=== PATIENT | female | born 1975 | race African-American/Black ===

== ENCOUNTER 2017-12-17 16:30 | Emergency (ER) | payer OTHER ==
[~2017-12-17] VITALS: Ht 162.6 cm; Wt 66.8 kg
[2017-12-17 16:57] LABS: ALBUMIN 4.2 g/dL (3.2-4.8); CHLORIDE 103 mEq/L (99-109); HEMATOCRIT 31.4 % (36.0-46.0); HEMOGLOBIN 9.8 G/DL (11.9-15.5); MCH 23.2 PG (29.0-34.0); MCHC 31.2 G/DL (30.0-36.0); MCV 74.4 FL (83-99); PLATELET COUNT 216 K/uL (156-360); POTASSIUM 3.7 mEq/L (3.7-5.4); RBC DIS.WIDTH-CV 15.5 % (11.8-14.6); RBC DIS.WIDTH-SD 41.8 % (39-53); RED BLOOD COUNT 4.22 M/uL (3.80-5.20); SODIUM 137 mEq/L (136-147); WHITE BLOOD COUNT 6.9 K/uL (4.1-10.2)
[2017-12-17 16:59] LABS: GLUCOSE 87 mg/dL (70-99); TOTAL PROTEIN 7.5 g/dL (6.4-8.3)
[2017-12-17 17:01] LABS: TOTAL BILIRUBIN 0.2 mg/dL (0.0-1.0)
[2017-12-17 17:03] LABS: ALKALINE PHOSPHATASE 98 IU/L (3-129); CREATININE 0.9 mg/dL (0.6-1.3); GFR ESTIMATE (CALCULATED) > 59 mL/min/
[2017-12-17 17:04] LABS: UREA NITROGEN (BUN) 5 mg/dL (9-23)
[2017-12-17 17:05] LABS: AST (GOT) 20 IU/L (2-34)
[2017-12-17 17:06] LABS: ALT (GPT) 19 IU/L (3-49)
[2017-12-17 17:11] LABS: QUANTITATIVE HCG < 4.0 MIU/ML
[2017-12-17 17:44] LABS: APPEARANCE CLEAR ((CLEAR)); BILIRUBIN NEGATIVE; BLOOD LARGE; COLOR YELLOW ((YELLOW)); GLUCOSE (STRIP) NEGATIVE; KETONES NEGATIVE; LEUKOCYTES SMALL; NITRITE NEGATIVE; PROTEIN (STRIP) 30; SPECIFIC GRAVITY 1.018 (1.000-1.030); UROBILINOGEN 0.2 MG/DL (0.2-1.0)
[2017-12-17 17:50] LABS: BACTERIA RARE /HPF; EPITHELIAL CELLS 1+ /HPF; MUCUS TRACE /LPF; RED BLOOD CELLS TNTC /HPF (0-5); UCUL ADDED? YES; WHITE BLOOD CELLS 0-5 /HPF (0-5)
[2017-12-17] MEDS ORDERED: ZOFRAN ODT8 MG PO (20:24)
[2017-12-17] MEDS ORDERED: BENTYL20 MG PO (20:24)
[2017-12-17] MEDS ORDERED: INDOCIN50 MG PO (20:24)
[2017-12-17] MEDS ORDERED: PROVERA,CYCRIN10 MG PO (20:57)
[2017-12-17 21:27] VITALS: BP 108/85
== END 2017-12-17 21:37 | disposition home or self-care (01) ==
LOC: EME 16:30
DX: N92.1 Excessive and frequent menstruation with irregular cycle (principal); D64.9 Anemia, unspecified; N94.6 Dysmenorrhea, unspecified; R42 Dizziness and giddiness; F17.200 Nicotine dependence, unspecified, uncomplicated; Z88.2 Allergy status to sulfonamides
CPT/HCPCS: 80053; 81003; 84702; 85027; 87086; 99281; 99285; J2405; J7030